=== PATIENT | female | born 1930 | race Caucasian/White ===

== ENCOUNTER 2016-05-30 04:26 | Inpatient (IN) | payer OTHER ==
[2016-05-30] VITALS (8 sets, daily range): BP systolic 71–119; BP diastolic 39–63
[~2016-05-30] VITALS: Ht 152.4 cm; Wt 50.0 kg
[2016-05-30] MEDS ORDERED: ENAL2.5T PO (04:45)
[2016-05-30] MEDS ORDERED: WARF5TAB7 PO (04:45)
[2016-05-30] MEDS ORDERED: ONDANSETRON 2MG/ML, 2ML IVPush ONE (05:00)
[2016-05-30] MEDS ORDERED: SODIUM CHLORIDE 0.9% 1,000 ML IV ONE (05:00)
[2016-05-30] MEDS ORDERED: ONDANSETRON 2MG/ML, 2ML ONE (05:13)
[2016-05-30] MEDS ORDERED: MORPHINE SULFATE 4 MG/ML, 1ML ONE ×2 (05:13→07:23)
[2016-05-30] MEDS: MORPHINE SULFATE 4 MG/ML, 1ML IVPush PRN ×3 (05:22→11:27)
[2016-05-30 05:36] LABS: HEMOGLOBIN 12.3 g/dL (11.7-16.4)
[2016-05-30 05:51] LABS: BLOOD UREA NITROGEN 22 mg/dL (7-18)
[2016-05-30 05:54] LABS: ASPARTATE AMINO TRANSFERASE 11 U/L (15-37)
[2016-05-30 06:01] LABS: IS PT STATUS REG ER OR PRE ER? YES
[2016-05-30] MEDS ORDERED: DILTIAZEM 5 MG/ML, 5ML ONE (06:10)
[2016-05-30] MEDS ORDERED: DILTIAZEM 5 MG/ML, 5ML IV ONE (06:30)
[2016-05-30] MEDS: DILTIAZEM 125 MG in DEXTROSE 5% 100 ML IV SCH ×3 (06:37→10:58)
[2016-05-30] MEDS ORDERED: SODIUM CHLORIDE 0.9% 1,000 ML IV SCH (08:47)
[2016-05-30] MEDS: SENNA/DOCUSATE TABLET PO SCH (09:00)
[2016-05-30] MEDS ORDERED: DILTIAZEM 125 MG in SODIUM CHLORIDE 0.9% 100 ML IV PRN (09:00)
[2016-05-30] MEDS ORDERED: DOCUSATE 100 MG CAPSULE PO PRN (09:00)
[2016-05-30] MEDS ORDERED: LABETALOL 5MG/ML, 20ML IVPush PRN (09:00)
[2016-05-30] MEDS ORDERED: hydrALAzine 20 MG/ML, 1ML IV PRN (09:00)
[2016-05-30] MEDS ORDERED: POLYETHYLENE GLYCOL 17 GM PACKET PO PRN (09:00)
[2016-05-30] MEDS ORDERED: ACETAMINOPHEN 325 MG TABLET PO PRN (09:00)
[2016-05-30] MEDS: NICOTINE 7 MG/24 HR PATCH.TD24 TD SCH (09:00)
[2016-05-30] MEDS ORDERED: ENALAPRILAT 1.25 MG/ML, 2ML IV PRN (09:00)
[2016-05-30] MEDS ORDERED: MAGNESIUM SULFATE PMX 2GM/50ML 50 ML IV ONE (11:00)
[2016-05-30] MEDS: GABAPENTIN 100 MG CAPSULE PO SCH ×3 (11:06→22:07)
[2016-05-30] MEDS ORDERED: SODIUM CHLORIDE 0.9%, 500ML IVBOLUS STA (15:34)
[2016-05-31] VITALS (8 sets, daily range): BP systolic 98–132; BP diastolic 41–77
[2016-05-31] MEDS: HYDROcodone/APAP 5/325 TABLET PO PRN ×3 (04:52→20:45)
[2016-05-31 06:14] LABS: BLOOD UREA NITROGEN 25 mg/dL (7-18)
[2016-05-31] MEDS: NICOTINE 7 MG/24 HR PATCH.TD24 TD SCH (09:00)
[2016-05-31] MEDS ORDERED: PHYTONADIONE 10 MG/ML, 1ML SQ SCH (09:00)
[2016-05-31] MEDS ORDERED: DILTIAZEM 125 MG in SODIUM CHLORIDE 0.9% 100 ML IV PRN (09:00)
[2016-05-31] MEDS: SENNA/DOCUSATE TABLET PO SCH (09:00)
[2016-05-31] MEDS: GABAPENTIN 100 MG CAPSULE PO SCH ×3 (09:17→20:41)
[2016-06-01 01:05] VITALS: BP 111/67
[2016-06-01 05:53] LABS: HEMOGLOBIN 10.1 g/dL (11.7-16.4)
[2016-06-01 06:16] LABS: BLOOD UREA NITROGEN 23 mg/dL (7-18)
[2016-06-01 06:25] VITALS: BP 101/57
[2016-06-01] MEDS: HYDROcodone/APAP 5/325 TABLET PO PRN ×2 (06:28→19:27)
[2016-06-01] MEDS: SENNA/DOCUSATE TABLET PO SCH (08:33)
[2016-06-01] MEDS: NICOTINE 7 MG/24 HR PATCH.TD24 TD SCH (08:33)
[2016-06-01] MEDS: GABAPENTIN 100 MG CAPSULE PO SCH ×3 (08:33→19:27)
[2016-06-01] MEDS: DILTIAZEM 90 MG TABLET PO SCH ×3 (11:27→21:35)
[2016-06-01 13:35] VITALS: BP 115/63
[2016-06-01 21:35] VITALS: BP 107/55
[2016-06-01] MEDS: MORPHINE SULFATE 4 MG/ML, 1ML IVPush PRN (21:42)
[2016-06-02] MEDS: HYDROcodone/APAP 5/325 TABLET PO PRN ×4 (02:08→18:28)
[2016-06-02 02:12] VITALS: BP 89/51
[2016-06-02 04:15] VITALS: BP 92/50
[2016-06-02 05:42] LABS: BLOOD UREA NITROGEN 24 mg/dL (7-18)
[2016-06-02 06:09] VITALS: BP 128/66
[2016-06-02] MEDS: MORPHINE SULFATE 4 MG/ML, 1ML IVPush PRN (06:18)
[2016-06-02 07:34] VITALS: BP 112/59
[2016-06-02] MEDS ORDERED: ALBUTEROL/IPRATROPIUM 2.5MG/0.5MG, 3 ML NEB ONE (08:00)
[2016-06-02] MEDS: ALBUTEROL/IPRATROPIUM 2.5MG/0.5MG, 3 ML HHN SCH ×3 (08:00→19:50)
[2016-06-02] MEDS: NICOTINE 7 MG/24 HR PATCH.TD24 TD SCH (09:00)
[2016-06-02] MEDS: GABAPENTIN 100 MG CAPSULE PO SCH ×3 (09:58→22:07)
[2016-06-02] MEDS: SENNA/DOCUSATE TABLET PO SCH (09:58)
[2016-06-02 12:00] VITALS: BP 102/63
[2016-06-02] MEDS: ONDANSETRON 2MG/ML, 2ML IVP PRN (14:32)
[2016-06-02] MEDS: DILTIAZEM 60 MG TABLET PO SCH ×2 (17:45→22:08)
[2016-06-02 21:03] VITALS: BP 106/51
[2016-06-03 02:27] VITALS: BP 99/62
[2016-06-03] MEDS: ALBUTEROL/IPRATROPIUM 2.5MG/0.5MG, 3 ML HHN SCH ×4 (03:00→19:40)
[2016-06-03] MEDS: HYDROcodone/APAP 5/325 TABLET PO PRN ×4 (06:12→23:32)
[2016-06-03] MEDS: DILTIAZEM 60 MG TABLET PO SCH ×4 (06:13→23:32)
[2016-06-03 06:22] LABS: HEMOGLOBIN 10.3 g/dL (11.7-16.4)
[2016-06-03 06:35] LABS: BLOOD UREA NITROGEN 27 mg/dL (7-18)
[2016-06-03 07:51] VITALS: BP 93/55
[2016-06-03] MEDS: NICOTINE 7 MG/24 HR PATCH.TD24 TD SCH (09:00)
[2016-06-03] MEDS: SENNA/DOCUSATE TABLET PO SCH (09:17)
[2016-06-03] MEDS: ONDANSETRON 2MG/ML, 2ML IVP PRN (09:17)
[2016-06-03] MEDS: GABAPENTIN 100 MG CAPSULE PO SCH ×3 (09:17→20:01)
[2016-06-03 13:31] VITALS: BP 102/61
[2016-06-03] MEDS ORDERED: FUROSEMIDE 40 MG/4 ML IV ONE (15:00)
[2016-06-03] MEDS: ENOXAPARIN 60 MG/0.6 ML SQ SCH (15:58)
[2016-06-03] MEDS: PIPERACILLIN/TAZO/PMX 3.375GM 50 ML IV SCH ×2 (15:58→23:32)
[2016-06-03] MEDS: FUROSEMIDE 20 MG TABLET PO SCH (15:58)
[2016-06-03 17:08] VITALS: BP 103/66
[2016-06-03 18:46] VITALS: BP 113/59
[2016-06-04] MEDS: MORPHINE SULFATE 4 MG/ML, 1ML IVPush PRN (01:10)
[2016-06-04] MEDS: ALBUTEROL/IPRATROPIUM 2.5MG/0.5MG, 3 ML HHN SCH ×4 (02:30→20:37)
[2016-06-04 02:44] VITALS: BP 111/61
[2016-06-04] MEDS: ENOXAPARIN 60 MG/0.6 ML SQ SCH (04:05)
[2016-06-04 05:21] LABS: HEMOGLOBIN 8.7 g/dL (11.7-16.4)
[2016-06-04 05:24] LABS: BLOOD UREA NITROGEN 30 mg/dL (7-18)
[2016-06-04] MEDS: ONDANSETRON 2MG/ML, 2ML IVP PRN (06:22)
[2016-06-04] MEDS: DILTIAZEM 60 MG TABLET PO SCH ×4 (06:23→22:46)
[2016-06-04 07:04] VITALS: BP 104/62
[2016-06-04] MEDS: FUROSEMIDE 20 MG TABLET PO SCH (08:36)
[2016-06-04] MEDS: GABAPENTIN 100 MG CAPSULE PO SCH ×3 (08:36→20:22)
[2016-06-04] MEDS: NICOTINE 7 MG/24 HR PATCH.TD24 TD SCH (08:36)
[2016-06-04] MEDS: PIPERACILLIN/TAZO/PMX 3.375GM 50 ML IV SCH ×3 (08:36→22:53)
[2016-06-04] MEDS: SENNA/DOCUSATE TABLET PO SCH (08:36)
[2016-06-04 13:46] VITALS: BP 109/64
[2016-06-04] MEDS: HYDROcodone/APAP 5/325 TABLET PO PRN ×2 (16:42→23:38)
[2016-06-04 18:27] VITALS: BP 124/66
[2016-06-04 22:46] VITALS: BP 115/54
[2016-06-05 00:13] VITALS: BP 113/58
[2016-06-05] MEDS: ALBUTEROL/IPRATROPIUM 2.5MG/0.5MG, 3 ML HHN SCH ×2 (02:00→07:16)
[2016-06-05] MEDS ORDERED: ENOXAPARIN 40 MG/0.4 ML SQ SCH (04:00)
[2016-06-05 05:30] VITALS: BP 107/66
[2016-06-05] MEDS: DILTIAZEM 60 MG TABLET PO SCH ×2 (05:35→11:24)
[2016-06-05] MEDS: HYDROcodone/APAP 5/325 TABLET PO PRN ×2 (05:35→12:25)
[2016-06-05] MEDS: NICOTINE 7 MG/24 HR PATCH.TD24 TD SCH (08:20)
[2016-06-05] MEDS: MORPHINE SULFATE 4 MG/ML, 1ML IVPush PRN (08:28)
[2016-06-05] MEDS: PIPERACILLIN/TAZO/PMX 3.375GM 50 ML IV SCH (08:28)
[2016-06-05] MEDS: GABAPENTIN 100 MG CAPSULE PO SCH (08:28)
[2016-06-05] MEDS: SENNA/DOCUSATE TABLET PO SCH (08:28)
[2016-06-05 08:32] VITALS: BP 126/62
[2016-06-05] MEDS ORDERED: KETOROLAC 30 MG/1 ML IM PRN (09:30)
== END 2016-06-05 13:00 | disposition hospice, home (50) | DRG 299 ==
LOC: ED 05:14 → EDIP 08:05 → SUATTDRO 08:17 → 5SO 09:45
PROVIDERS: ADMIT Hospitalist; ATTEND Family Medicine
PROC: 0T9B70Z Drainage of Bladder with Drainage Device, Via Natural or Artificial Opening (ICD-10-PCS; principal; 2016-05-30)
DX: I70.362 Atherosclerosis of unspecified type of bypass graft(s) of the extremities with gangrene, left leg (principal); N17.0 Acute kidney failure with tubular necrosis; J18.9 Pneumonia, unspecified organism; E87.1 Hypo-osmolality and hyponatremia; D68.69 Other thrombophilia; J44.0 Chronic obstructive pulmonary disease with (acute) lower respiratory infection; I70.262 Atherosclerosis of native arteries of extremities with gangrene, left leg; I48.91 Unspecified atrial fibrillation; M79.605 Pain in left leg; Z79.01 Long term (current) use of anticoagulants; I10 Essential (primary) hypertension; R73.9 Hyperglycemia, unspecified; Z66 Do not resuscitate; H35.30 Unspecified macular degeneration; D72.829 Elevated white blood cell count, unspecified; F17.210 Nicotine dependence, cigarettes, uncomplicated; Z80.3 Family history of malignant neoplasm of breast; Z82.49 Family history of ischemic heart disease and other diseases of the circulatory system; Z88.8 Allergy status to other drugs, medicaments and biological substances; Z51.5 Encounter for palliative care
CPT/HCPCS: 36415; 71010; 80048; 80053; 80061; 81001; 83735; 84439; 84443; 84484; 85025; 85520; 85610; 85730; 87086; 93005; 93306; 93922; 93925; 94640; 96374; 96375; 96376; J1650; J1885; J1940; J2405; J2543; J3430; J7620; J3475; J7030; J7040